=== PATIENT | male | born 1955 | race Caucasian/White ===

== ENCOUNTER 2018-02-06 09:30 | Inpatient (IN) | payer OTHER ==
--- NOTE | 2018-02-21 22:28 | GHP ---
[f rep st] PREOP HISTORY AND PHYSICAL DATE OF ADMISSION: 03/06/2018 PROBLEM: Right hip arthritis. HISTORY OF PRESENT ILLNESS: The patient is a 62-year-old man admitted for a right total hip arthropl asty. He has experienced bilateral hip pain, which has been progressive for the past 5 to 7 years. Both hips are equally painful. He is having daily pain and some night pain. He likes to lift weight s and ride a bicycle. He took Aleve, which helped for 4 or 5 months, but then lost its effectiveness . He switched to meloxicam, which he has used for the past 5 or 6 months. He also is using CBD oil. His hips are stiff after sitting. He has had 2 cortisone injections without much benefit. PAST MEDICAL HISTORY: He is treated for ADD and migraine headaches. No history of heart disease, st ents, DVT, hepatitis, MRSA staph infections, sleep apnea, or bleeding problems. CURRENT MEDICATIONS: Meloxicam 15 mg per day. Methylphenidate 20 mg per day. Prochlorperazine 10 m g per day. DRUG ALLERGIES: None. METAL ALLERGY: None. LATEX ALLERGY: None. SOCIAL HISTORY: The patient is retired. He does not smoke cigarettes or drink alcohol. He has a fe male friend who will assist him following discharge. FAMILY HISTORY: Positive for arthritis. PHYSICAL EXAMINATION: GENERAL: Height 6 feet 2 inches, weight 205 pounds. BMI 26.3. EYES: The co njunctivae and sclerae are clear. Pupils are round and reactive. MOUTH: Good oral hygiene. No loo se teeth. CHEST: Clear. HEART: Regular rhythm. No murmurs. EXTREMITIES: Pertinent findings are limited to his right hip. He has full hip extension to 120 degrees of flexion. External rotation 6 0 degrees. Internal rotation 20 degrees. Abduction 45 degrees. IMAGING: His films show degenerative arthritis in the right hip. PLAN: He will undergo a right total hip arthroplasty. The surgery has been described to him, includ ing the risks, complications, expectations, and recovery time. I have discussed with him specificall y the risk of dislocation, leg length inequality, infection, and sciatic nerve injury. He understand s that he is relatively young and might need revision surgery in the future. He is also thinking abo ut getting a hip arthroplasty for the left hip. All his questions have been answered, and he consent s to surgery. /[id number]/MODL
[2018-03-06] MEDS ORDERED: TRANEXAMIC ACID 1,000 MG in NS 100 ML IV ONE (06:00)
[2018-03-06] MEDS ORDERED: POVIDONE-IODINE 20 ML in SODIUM CL IRRIG SOLUTION 500 ML IRR ONE (06:00)
[2018-03-06] MEDS ORDERED: ROPIVACAINE 0.2% 80 MG, EPINEPHrine 0.2 MG, KETOROLAC TROMETHAMINE 30 MG in SYRINGE 0 ML IU ONE (06:00)
[2018-03-06] MEDS ORDERED: ACETAMINOPHEN 325 MG TAB PO ONE (07:32)
[2018-03-06] MEDS ORDERED: ONDANSETRON 4 MG/2 ML VIAL IVP ONE (07:32)
[2018-03-06] MEDS ORDERED: GABAPENTIN 300 MG CAP PO ONE (07:32)
[2018-03-06] MEDS ORDERED: ceFAZolin 2 GM/DEXTROSE 100 ML IV ONE (07:32)
[2018-03-06] MEDS ORDERED: FAMOTIDINE 20 MG TAB PO ONE (07:32)
[2018-03-06] MEDS ORDERED: DEXAMETHASONE 4 MG/ML VIAL IVP ONE (07:32)
[2018-03-06] MEDS ORDERED: LR 1,000 ML IV ONE (07:33)
[2018-03-06] MEDS ORDERED: LIDOCAINE 1% 2 ML INJ ID PRN (07:33)
[2018-03-06] MEDS ORDERED: ceFAZolin 1 GM/5 ML SYR ONE (08:00)
--- NOTE | 2018-03-06 08:39 | PDANEPAE ---
ANE History of Present Illness Right Hip Arthroplasty ANE Past Medical History - Cardiovascular History Hx Hypertension: No Hx Arrhythmias: No Hx Chest Pain: No Hx Coronary Artery / Peripheral Vascular Disease: No Hx CHF / Valvular Disease: No Hx Palpitations: No - Pulmonary History Hx COPD: No Hx Asthma/Reactive Airway Disease: No Hx Recent Upper Respiratory Infection: No Hx Oxygen in Use at Home: No Hx Sleep Apnea: No Sleep Apnea Screening Result - Last Documented: Negative - Neurologic History Hx Cerebrovascular Accident: No Hx Seizures: No Hx Dementia: No - Endocrine History Hx Diabetes: No Hypothyroid: No Hyperthyroid: No Obesity: no - Renal History Hx Renal Disorders: No - Liver History Hx Hepatic Disorders: No - Neurological & Psychiatric Hx Hx Neurological and Psychiatric Disorders: Yes Neurological / Psychiatric History Comment: ADD. MIGRAINES 1-2 PER YEAR - Cancer History Hx Cancer: Yes Cancer History Comment: SKIN - Congenital Disorder History Hx Congenital Disorders: No - GI History GERD: no Hx Gastrointestinal Disorders: No - Other Health History Other Health History: OSTEOARTHRITIS - Chronic Pain History Chronic Pain: Yes (RT HIP) - Surgical History Prior Surgeries: RT/LT CLAVICLE REPAIR. RT HAND SURG. LT SHLDR TENDON REPAIR/ DECOMPRESSION. TESTICULAR VARICOCELE. SEPTOPLASTY. CHIN IMPLANT (LATEX). TONSILLECTOMY ANE Review of Systems Review of systems is: negative Review of Systems: - Exercise capacity METS (RN): 4 METS - Systems Constitutional: Reports: no symptoms ANE Patient History - Allergies Allergies/Adverse Reactions: NITRATES IN FOODS Allergy (Uncoded 03/06/18 08:18) HEADACHES - Home Medications Home medications: home medication list seen and reviewed Home Medications: Acetaminophen [Tylenol 325mg (*)] 325 mg PO DAILY PRN 02/19/18 [Last Taken Unknown] Herbals/Supplements -Info Only 1 ea PO DAILY 02/19/18 [Last Taken Unknown] Ibuprofen [Motrin (*)] 200 - 600 mg PO BID PRN 02/19/18 [Last Taken Unknown] Meloxicam [Mobic 15 mg] 15 mg PO DAILY PRN 02/19/18 [Last Taken Unknown] Methylphenidate HCl [Ritalin 20mg (*)] 20 mg PO TID 02/19/18 [Last Taken 13:00] Naproxen Sodium [Aleve 220 MG (*)] 220 mg PO BID PRN 02/19/18 [Last Taken Unknown] Prochlorperazine Maleate [Compazine 10mg (*)] 10 mg PO DAILY PRN 02/19/18 [Last Taken 03/05/18 13:00] - NPO status NPO Status: no food or drink >8 hours NPO Since - Liquids (Date): 03/05/18 NPO Since - Liquids (Time): 22:00 NPO Since - Solids (Date): 03/05/18 NPO Since - Solids (Time): 22:00 - Anes Hx Anes Hx: no prior problems - Smoking Hx Smoking Status: Former smoker - Family Anes Hx Family Anes Hx: none Family Hx Anesthesia Complications: NEG ANE Labs/Vital Signs - Vital Signs Blood Pressure: 128/82 Heart Rate: 64 Respiratory Rate: 19 O2 Sat (%): 94 Height: 189.23 cm Weight: 94.347 kg ANE Physical Exam - Airway Neck exam: FROM Mallampati Score: Class 1 Mouth exam: normal dental/mouth exam - Pulmonary Pulmonary: no respiratory distress, no rales or rhonchi - Cardiovascular Cardiovascular: regular rate and rhythym, no murmur, rub, or gallop - ASA Status ASA Status: II ANE Anesthesia Plan Anesthesia Plan: spinal Total IV Anesthesia: Yes
--- NOTE | 2018-03-06 09:07 | PDHPUP ---
History & Physical Update H&P update statement: This history and physical update is based on an assessment of the patient which was completed after admission or registration (within 24 hours), but prior to the surgery/procedure. H&P update: H&P reviewed & patient examined
[2018-03-06] MEDS ORDERED: MIDAZOLAM 2 MG/2 ML VIAL IVP ONE (09:35)
[2018-03-06] MEDS ORDERED: BUPIVACAINE 0.25% 30 ML SDV ONE (09:55)
[2018-03-06] MEDS ORDERED: LIDOCAINE 1% 300 MG/30 ML SDV ONE (09:55)
[2018-03-06] MEDS ORDERED: PROPOFOL/EMULSION 500 MG/50 ML BOTTLE IV ONE (09:57)
[2018-03-06] MEDS ORDERED: fentaNYL 100 MCG/2 ML INJ ONE (09:57)
[2018-03-06] MEDS ORDERED: MIDAZOLAM 2 MG/2 ML VIAL ONE (09:57)
[2018-03-06] MEDS ORDERED: PHENYLEPHRINE HCL 100 MCG/ML SYR ONE (10:43)
[2018-03-06] MEDS ORDERED: PROPOFOL 200 MG/20 ML VIAL ONE (11:10)
[2018-03-06] MEDS ORDERED: oxyCODONE IR 5 MG TAB PO PRN (11:20)
[2018-03-06] MEDS ORDERED: DIAZEPAM 5 MG/ML 1 ML SYR IVP PRN (11:20)
[2018-03-06] MEDS ORDERED: ONDANSETRON 4 MG/2 ML VIAL IVP PRN (11:20)
[2018-03-06] MEDS ORDERED: NALOXONE HCL 0.4 MG/ML INJ IVP PRN (11:20)
[2018-03-06] MEDS ORDERED: fentaNYL 100 MCG/2 ML INJ IVP PRN (11:20)
[2018-03-06] MEDS ORDERED: PROMETHAZINE HCL 25 MG/ML INJ IVP PRN ×2 (11:20→11:33)
[2018-03-06] MEDS ORDERED: DIPHENOXYLATE/ATROPINE LOMOTIL 1 TAB PO PRN (11:33)
[2018-03-06] MEDS ORDERED: POLYETHYLENE GLYCOL 3350 17 GM PKT PO PRN (11:33)
[2018-03-06] MEDS ORDERED: METOCLOPRAMIDE 10 MG/2 ML VIAL IVP PRN (11:33)
[2018-03-06] MEDS ORDERED: BISACODYL 10 MG SUPP PR PRN (11:33)
[2018-03-06] MEDS ORDERED: ONDANSETRON DISINTEGRATING 4 MG TAB PO PRN (11:33)
[2018-03-06] MEDS ORDERED: TEMAZEPAM 15 MG CAP PO PRN (11:33)
[2018-03-06] MEDS ORDERED: LACTULOSE 20 GM/30 ML UDCUP PO PRN (11:33)
[2018-03-06] MEDS ORDERED: traMADol 50 MG TAB PO PRN (11:33)
[2018-03-06] MEDS ORDERED: MAGNESIUM HYDROXIDE 30 ML UDCUP PO PRN (11:33)
[2018-03-06] MEDS ORDERED: PROMETHAZINE HCL 25 MG SUPPR PR PRN (11:33)
[2018-03-06] MEDS ORDERED: CYCLOBENZAPRINE 10 MG TAB PO PRN (11:33)
--- NOTE | 2018-03-06 11:33 | POSTOPPROG ---
Post Op Note Date of Operation: 03/06/18 Surgeon: Kris Brower Estate Attorney: Hugo/Angelica Anesthesiologist: Shar Anesthesia: IV Sedation, Spinal Post-op Diagnosis: R hip arthritis Procedure: R IRVIN Inf/Abcess present in the surg proc area at time of surgery?: No EBL: 100-500
--- NOTE | 2018-03-06 12:19 | GOP ---
[f rep st] OPERATIVE REPORT DATE OF OPERATION: 03/06/2018 SURGEON: Kris Brower MD LOCKSTITCH BACK MAKER: Alex Arias and Coy Dominguez. PREOPERATIVE DIAGNOSIS: Right hip severe degenerative arthritis. POSTOPERATIVE DIAGNOSIS: Right hip severe degenerative arthritis. PROCEDURE PERFORMED: 03/06/2018, a right total hip arthroplasty, ceramic femoral head on highly cros s-linked polyethylene cup liner. FINDINGS: DESCRIPTION OF PROCEDURE: The patient was given 2 g of IV Ancef preoperatively within 60 minutes of surgery. He also received IV tranexamic acid at a dose of 1000 mg. He was placed on the operating r oom table and given spinal anesthesia with Marcaine by Dr. Myles. He was then placed supine and giv en IV sedation. A Dewitt catheter was not used. He wore a SHAY stocking and SCD on the nonoperative l eg. He was rolled to the left lateral decubitus position. The position was secured with the pegboar d table attachment. An axillary roll was used, and all pressure points were carefully padded. I was careful to lock his pelvis in a rigid vertical position. His perineum was isolated with plastic adh esive drapes. His right hip and right lower extremity were prepped with ChloraPrep. They were drape d free using sterile sheets, stockinette, and Ioban plastic drape. The World Health Organization time-out was performed to verify the correct surgical side and site and the correct patient identity. The [place] time-out was also performed. I made a 5-inch straight oblique posterolateral hip skin incision. Subcutaneous tissues were sharply divided, and hemostasis was obtained using electrocautery. The fascia cristina was identified and split distally along the axis of its fibers. I then curved posteriorly and proximally to split the fascia of gluteus les and bluntly split the muscle fibers in line with their orientation. The Charnley self-retaining retractor was inserted. His sciatic nerve was located, partially exposed, and protec shay throughout the procedure. The external rotators and the posterior hip capsule were divided as se parate layers at the base of the femoral neck, tagged, and reflected posteriorly. A smooth 8-inch St einmann pin was inserted vertically into the ilium superior to the acetabulum. An 1/8-inch drill bit was inserted vertically into the greater trochanter and parallel to the first pin. The distance bet ween the 2 was measured for leg length reference. His femoral head was dislocated posteriorly. Dege nerative changes were present on the head. The femoral neck was osteotomized at the appropriate leve l and inclination. I was careful to preserve all the posterior capsule and most of the anterior capsule. The remnant of his damaged labrum was excised. I prepared the femur first. This allowed me to alarm installation technician the amount of natural femoral neck anteversion. This, in turn, allowed me to later determine the correct amount of cup anteversion. He had approxi mately 15 degrees of femoral neck anteversion which is a little more than average for a male. The ca nal was opened laterally with a box chisel. I reamed and broached sequentially up to a size 8. I us ed a Tonya Accolade II stem in a size 8 with standard offset as a trial broach. I was careful to l ateralize adequately. Appropriate retractors were inserted to expose the acetabulum. The acetabulum was reamed sequentiall y up to 58 mm. I selected a 58 mm Tonya Tritanium Trident II cluster hole hemispherical shell. Th is was tapped securely into place in the proper degree of inclination anteversion. I used the transv erse acetabular ligament and other acetabular bony landmarks to help me properly orient the cup. Sup plemental screws were not necessary. I performed a series of trial reductions to determine length and stability. I concluded that the siz e 8 stem with a standard offset and a +5 mm neck length, a 36 mm head, and a 0 degree liner gave me t he proper combination of appropriate length and good anterior and posterior stability. I took intraoperative cross-table AP pelvis x-ray. This demonstrated good sizing and position of the stem. The correct cup position. The leg lengths looked correct with the +5 mm neck. The 0 degree Tonya X3 highly cross-linked polyethylene liner was inserted and tapped securely into place. I selected the Tonya Accolade II stem in a size 8 with standard offset. This was inserted press-fit and was very tight. I did one final trial reduction and confirmed that the +5 mm neck didier th with a 36 mm head was the proper combination. The [place] Biolox Delta ceramic head with a +5 mm neck length and a 36 mm outside diameter was tapped securely onto the clean trunnion. The acetabulum was irrigated and cleaned, and the hip was reduced one final time. He had excellent anterior and po sterior stability and appropriate length. 40 mL of the joint anesthetic cocktail were injected into the capsule, the deep musculature, and the subcutaneous tissues along the skin edges. The joint was thoroughly irrigated one final time with a dilute Betadine solution. His sciatic nerve was reinspected and looked unharmed. The external rotators and the posterior hip capsule were repaired in separate layers with #2 FiberWir e sutures through drill holes in the greater trochanter. The fascia cristina was closed with 2 figure-of -eight #2 FiberWire sutures, followed by a running #2 barbed Ethicon Stratafix PDO suture. Subcutane ous tissues were closed with a running 0 barbed Ethicon Stratafix Monoderm suture. The skin was clos ed with a running 3-0 barbed Ethicon Stratafix Monoderm subcuticular suture. The skin edges were guillaume pproximated and sealed with Dermabond glue. The wound was covered with a large waterproof sterile Me pilex surgical dressing. The Mepilex sacral dressing was also applied. A long-leg SHAY stocking and SCD were applied to his right lower extremity. He wore a stocking and SC D on the opposite leg during the procedure. An abduction pillow was placed between his knees. He wa s awakened from anesthesia and rolled to the supine position on his [facility]. He was taken to PACU in satisfactory condition. There were no recognized intraoperative complications. The estimated blood loss about 400 mL. The sponge and needle count were correct on 2 occasions. I used a Tonya Tritanium hemispherical cluster hole Trident II acetabular shell with an outside dandy meter of 58 mm. The liner was a [place] X3 zero-degree liner with an inside diameter of 36 mm. The femoral component was a press-fit Tonya Accolade II standard offset stem in a size 8. The femoral head was a Tonya Biolox Delta ceramic head with a +5 mm neck length and a 36 mm outside diameter. Alex Arias and Dr. Coy Dominguez acted as surgical assistants. Their assistance was a medical [facility] sity for safe completion of the procedure. /[id number]/MODL
--- NOTE | 2018-03-06 12:42 | PDMN ---
Medical Necessity Medical necessity: [facility] S-560, hip athroplasty, aakash inpt only, R IRVIN
[2018-03-06] MEDS: LR 1,000 ML IV SCH ×2 (13:21→22:13)
[2018-03-06] MEDS: ACETAMINOPHEN 325 MG TAB PO SCH ×3 (13:21→23:15)
[2018-03-06] MEDS: KETOROLAC 15 MG/1 ML SDV IVP SCH ×3 (13:23→23:16)
--- NOTE | 2018-03-06 13:24 | POSTANESTH ---
Post Anesthetic Evaluation Cardiovascular Status: Normal, Stable Respiratory Status: Normal, Stable Level of Consciousness/Mental Status: Can Participate in Eval Pain Control: Adequate, Prn Tx Ordered Nausea/Vomiting Control: Adequate, Prn Tx Ordered Complications Possibly Related to Anesthesia: None Noted
[2018-03-06] MEDS: oxyCODONE IR 5 MG TAB PO PRN ×3 (15:11→23:17)
[2018-03-06] MEDS: TRANEXAMIC ACID 650 MG TAB PO SCH ×2 (16:09→23:18)
[2018-03-06] MEDS: ceFAZolin 2 GM/DEXTROSE 100 ML IV SCH (18:14)
[2018-03-06] MEDS: ASPIRIN 325 MG TAB PO SCH (20:12)
[2018-03-06] MEDS: SENNOSIDES/DOCUSATE SODIUM TAB PO SCH (20:12)
[2018-03-06] MEDS ORDERED: FAMOTIDINE 20 MG TAB PO SCH (21:00)
[2018-03-07] MEDS: ceFAZolin 2 GM/DEXTROSE 100 ML IV SCH (02:12)
[2018-03-07] MEDS: KETOROLAC 15 MG/1 ML SDV IVP SCH (05:29)
[2018-03-07] MEDS: ACETAMINOPHEN 325 MG TAB PO SCH (06:40)
[2018-03-07 07:20] VITALS: BP 98/55
[2018-03-07] MEDS ORDERED: FERROUS SULFATE 140 MG TAB.ER PO SCH (09:00)
[2018-03-07] MEDS: ASPIRIN 325 MG TAB PO SCH (09:48)
[2018-03-07] MEDS: TRANEXAMIC ACID 650 MG TAB PO SCH (09:49)
[2018-03-07] MEDS: oxyCODONE IR 5 MG TAB PO PRN (09:49)
[2018-03-07] MEDS: SENNOSIDES/DOCUSATE SODIUM TAB PO SCH (09:49)
--- NOTE | 2018-03-07 09:50 | SOAPPROG ---
SOAP Progress Note Assessment/Plan: Assessment: Afebrile. Awake and alert. Has been walking in [place] with PT. Has done stairs. Sciatic nerve intact. H/H is good. No nausea. Voiding spont. Post op films look good. Plan:DC today. 03/07/18 09:49 Objective: Vital Signs Temp Pulse Resp BP Pulse Ox 36.6 C 51 L 16 98/55 L 98 03/07/18 07:20 03/07/18 07:20 03/07/18 07:20 03/07/18 07:20 03/07/18 07:20 Laboratory Results 03/07/18 04:22 03/06/18 03/07/18 03/08/18 05:59 05:59 05:59 Intake Total 4168 Output Total 1950 Balance 2218 ICD10 Worksheet Patient Problems: Problems Problem Status Onset Osteoarthritis of right hip Acute
--- NOTE | 2018-03-07 10:05 | GDS ---
[f rep st] DISCHARGE SUMMARY ADMISSION DIAGNOSIS: Right hip degenerative arthritis. DISCHARGE DIAGNOSIS: Right hip degenerative arthritis. OPERATION PERFORMED: , right total hip arthroplasty, ceramic femoral head on highly cross- linked polyethylene cup liner. POSTOPERATIVE COMPLICATIONS: None. CONDITION ON DISCHARGE: Improved. DESCRIPTION OF HOSPITAL COURSE: The patient was admitted to the hospital the morning of surgery. Hi s admission CBC was normal. The same day, under a combination of Marcaine, spinal, and IV sedation, he underwent a right total hip arthroplasty. Postoperatively, he was treated with multimodal DVT pro phylaxis, including aspirin. On the first postoperative day his hemoglobin and hematocrit were 11.4 and 34.0. He was seen by Physical Therapy and made good progress with ambulation and stairs. By the time of discharge, he was afebrile, his wound was clean and dry, and he was independent walking with a walker. DISPOSITION: The patient discharged to his home. He will go to outpatient physical therapy at [facility] physical therapy in [place] next week. He may progress to full weightbearing on the right as tolerated. Use an abduction pillow in bed for 3 weeks. SHAY stockings for 1 week. Continue aspirin 325 mg p.o. daily for 21 days. He has prescriptions for oxycodone, tramadol and Celebrex for pain c ontrol. I will see him back in the office in 3 weeks. If there are any problems, he is to call me a t the office. /[id number]/MODL
--- NOTE | 2018-03-07 11:04 | ASMTLACE ---
NIKI Length of stay for Answers: 1 day current admission Acuity / Level of Answers: Yes Care: Did the patient have an inpatient admission? # of Emergency department Answers: 0 visits in the last 6 months Score: 4 Date Signed: 03/07/2018 11:04 AM Electronically Signed By:RENATO Avelar
--- NOTE | 2018-03-07 11:55 | ASDISCHSUM ---
Discharge Information Plan Status:Home with No Needs Medically Cleared to Leave: Discharge Date:03/07/2018 11:42 AM CM D/C Disposition:Home, Routine, Self-Care ADT D/C Disposition:Home, Routine, Self-Care Projected Discharge Date:03/07/2018 11:42 AM Transportation at D/C: Discharge Delay Reason: Follow-Up Date:03/07/2018 11:42 AM Discharge Slot: Final Diagnosis: Placement Information Patient Contact Information Contact Name:STACIE Relationship:Other Address: Home Phone: City: [facility] Phone: [facility]/Fullscreen Code: Email: Financial Information Financial Class:HMO and PPO Plans Primary Plan Desc:HMO CINDY [employer] PLAN Primary Plan Number:[id number] Secondary Plan Desc: Secondary Plan Number: Assessment Information LACE LACE Length of stay for Answers: 1 day current admission Acuity / Level of Answers: Yes Care: Did the patient have an inpatient admission? # of Emergency department Answers: 0 visits in the last 6 months Score: 4 Date Signed: 03/07/2018 11:04 AM Electronically Signed By:RENATO Avelar [facility] CM Progress Note CM Note CM Note Notes: Pt medically stable for d/c with friend support. Pt will have outpatient PT. No CM d/c needs identified Date Signed: 03/07/2018 11:55 AM Electronically Signed By:RENATO Avelar Intervention Information
== END 2018-03-07 11:42 | disposition home or self-care (01) | DRG 470 ==
LOC: F3N 03-06 07:17
PROVIDERS: ADMIT Orthopaedic Surgery; ATTEND Orthopaedic Surgery
PROC: 0SR904Z Replacement of Right Hip Joint with Ceramic on Polyethylene Synthetic Substitute, Open Approach (ICD-10-PCS; principal; 2018-03-06 09:15)
DX: M16.11 Unilateral primary osteoarthritis, right hip (principal); F98.8 Other specified behavioral and emotional disorders with onset usually occurring in childhood and adolescence
CPT/HCPCS: 97110-GP; 97116-GP; 97161-GP; 97165-GO; C1713; J0171; J0690; J1100; J1885; J2250; J2370; J2405; J2704; J2795; J3010

== ENCOUNTER 2018-04-17 07:26 | Inpatient (IN) | payer OTHER ==
[~2018-04-17 07:26] MED LIST: POVIDONE-IODINE 20 ML in SODIUM CL IRRIG SOLUTION 500 ML IRR ONE; ROPIVACAINE 0.2% 80 MG, EPINEPHrine 0.2 MG, KETOROLAC TROMETHAMINE 30 MG in SYRINGE 0 ML IU ONE; TRANEXAMIC ACID 1,000 MG in NS 100 ML IV ONE
[2018-04-17] MEDS ORDERED: ceFAZolin 2 GM/DEXTROSE 100 ML IV ONE (07:34)
[2018-04-17] MEDS ORDERED: FAMOTIDINE 20 MG TAB PO ONE (07:34)
[2018-04-17] MEDS ORDERED: ONDANSETRON 4 MG/2 ML VIAL IVP ONE (07:34)
[2018-04-17] MEDS ORDERED: GABAPENTIN 300 MG CAP PO ONE (07:34)
[2018-04-17] MEDS ORDERED: DEXAMETHASONE 4 MG/ML VIAL IVP ONE (07:34)
[2018-04-17] MEDS ORDERED: ACETAMINOPHEN 325 MG TAB PO ONE (07:34)
[2018-04-17] MEDS ORDERED: LR 1,000 ML IV ONE (07:35)
[2018-04-17] MEDS ORDERED: ceFAZolin 1 GM/5 ML SYR ONE (09:17)
[2018-04-17] MEDS ORDERED: MIDAZOLAM 2 MG/2 ML VIAL ONE (09:29)
[2018-04-17] MEDS ORDERED: PROPOFOL/EMULSION 500 MG/50 ML BOTTLE IV ONE (09:30)
[2018-04-17] MEDS ORDERED: LIDOCAINE 2% 5 ML SDV ONE (09:53)
[2018-04-17] MEDS ORDERED: DIAZEPAM 5 MG/ML 1 ML SYR IVP PRN (10:06)
[2018-04-17] MEDS ORDERED: fentaNYL 100 MCG/2 ML INJ IVP PRN (10:06)
[2018-04-17] MEDS ORDERED: DEXAMETHASONE 4 MG/ML VIAL IVP PRN (10:06)
[2018-04-17] MEDS ORDERED: NALOXONE HCL 0.4 MG/ML INJ IVP PRN (10:06)
[2018-04-17] MEDS ORDERED: ALBUTEROL 3 ML DEYVIAL IH PRN (10:06)
[2018-04-17] MEDS ORDERED: LR 500 ML IV PRN (10:06)
[2018-04-17] MEDS ORDERED: METOCLOPRAMIDE 10 MG/2 ML VIAL IVP PRN ×2 (10:06→11:34)
[2018-04-17] MEDS ORDERED: MEPERIDINE 25 MG/0.5 ML AMP IVP PRN (10:06)
[2018-04-17] MEDS ORDERED: ONDANSETRON 4 MG/2 ML VIAL IVP PRN ×2 (10:06→11:34)
--- NOTE | 2018-04-17 10:06 | PDANEPAE ---
ANE Past Medical History - Cardiovascular History Hx Hypertension: No Hx Arrhythmias: No Hx Chest Pain: No Hx Coronary Artery / Peripheral Vascular Disease: No Hx CHF / Valvular Disease: No Hx Palpitations: No - Pulmonary History Hx COPD: No Hx Asthma/Reactive Airway Disease: No Hx Recent Upper Respiratory Infection: No Hx Oxygen in Use at Home: No Hx Sleep Apnea: No Sleep Apnea Screening Result - Last Documented: Negative - Neurologic History Hx Cerebrovascular Accident: No Hx Seizures: No Hx Dementia: No - Endocrine History Hx Diabetes: No - Renal History Hx Renal Disorders: No - Liver History Hx Hepatic Disorders: No - Neurological & Psychiatric Hx Hx Neurological and Psychiatric Disorders: Yes Neurological / Psychiatric History Comment: ADD. MIGRAINES 1-2 PER YEAR - Cancer History Hx Cancer: Yes Cancer History Comment: SKIN - Congenital Disorder History Hx Congenital Disorders: No - GI History Hx Gastrointestinal Disorders: No - Other Health History Other Health History: OSTEOARTHRITIS - Chronic Pain History Chronic Pain: No - Surgical History Prior Surgeries: RT/LT CLAVICLE REPAIR. RT HAND SURG. LT SHLDR TENDON REPAIR/ DECOMPRESSION. TESTICULAR VARICOCELE. SEPTOPLASTY. CHIN IMPLANT (LATEX). TONSILLECTOMY. right IRVIN ANE Review of Systems Review of Systems: - Exercise capacity METS (RN): 4 METS ANE Patient History - Allergies Allergies/Adverse Reactions: NITRATES IN FOODS Allergy (Uncoded 04/02/18 10:57) HEADACHES - Home Medications Home Medications: Herbals/Supplements -Info Only 1 ea PO DAILY 02/19/18 [Last Taken 04/09/18] Methylphenidate HCl [Ritalin 20mg (*)] 20 mg PO TID@06,11,15 03/28/18 [Last Taken 04/16/18] - NPO status NPO Since - Liquids (Date): 04/16/18 NPO Since - Liquids (Time): 20:30 NPO Since - Solids (Date): 04/16/18 NPO Since - Solids (Time): 20:30 - Smoking Hx Smoking Status: Former smoker - Family Anes Hx Family Hx Anesthesia Complications: none ANE Labs/Vital Signs - Vital Signs Blood Pressure: 127/79 Heart Rate: 60 Respiratory Rate: 18 O2 Sat (%): 95 Height: 190.5 cm Weight: 92.986 kg ANE Physical Exam - Airway Neck exam: FROM Mallampati Score: Class 1 Mouth exam: normal dental/mouth exam - Pulmonary Pulmonary: no respiratory distress, no rales or rhonchi, clear to auscultation - Cardiovascular Cardiovascular: regular rate and rhythym, no murmur, rub, or gallop - ASA Status ASA Status: II ANE Anesthesia Plan Anesthesia Plan: spinal
--- NOTE | 2018-04-17 11:17 | POSTOPPROG ---
Post Op Note Date of Operation: 04/17/18 Surgeon: Kris Brower Rough Rice Tender: Hugo/Vitaly Anesthesiologist: Krishna Anesthesia: IV Sedation, Spinal Post-op Diagnosis: left hip arthritis Procedure: L IRVIN Inf/Abcess present in the surg proc area at time of surgery?: No EBL: 100-500
[2018-04-17] MEDS ORDERED: traMADol 50 MG TAB PO PRN (11:34)
[2018-04-17] MEDS ORDERED: MAGNESIUM HYDROXIDE 30 ML UDCUP PO PRN (11:34)
[2018-04-17] MEDS ORDERED: BISACODYL 10 MG SUPP PR PRN (11:34)
[2018-04-17] MEDS ORDERED: diphenhydrAMINE 25 MG CAP PO PRN (11:34)
[2018-04-17] MEDS ORDERED: PROMETHAZINE HCL 25 MG SUPPR PR PRN (11:34)
[2018-04-17] MEDS ORDERED: DIPHENOXYLATE/ATROPINE LOMOTIL 1 TAB PO PRN (11:34)
[2018-04-17] MEDS ORDERED: POLYETHYLENE GLYCOL 3350 17 GM PKT PO PRN (11:34)
[2018-04-17] MEDS ORDERED: NS 500 ML IV PRN (11:34)
[2018-04-17] MEDS ORDERED: TEMAZEPAM 15 MG CAP PO PRN (11:34)
[2018-04-17] MEDS ORDERED: CYCLOBENZAPRINE 10 MG TAB PO PRN (11:34)
[2018-04-17] MEDS ORDERED: PROMETHAZINE HCL 25 MG/ML INJ IVP PRN (11:34)
[2018-04-17] MEDS ORDERED: LACTULOSE 20 GM/30 ML UDCUP PO PRN (11:34)
--- NOTE | 2018-04-17 11:55 | GOP ---
[f rep st] OPERATIVE REPORT DATE OF OPERATION: 04/17/2018 SURGEON: Kris Brower MD CHEMICAL RESEARCH TECHNICIAN: 1. Alex Arias CFA. 2. Joey Haider, PAC. ANESTHESIA: A combination of Marcaine, spinal, and IV sedation. ANESTHESIOLOGIST: Indira Keller MD PREOPERATIVE DIAGNOSIS: Left hip severe degenerative arthritis. POSTOPERATIVE DIAGNOSIS: Left hip severe degenerative arthritis. PROCEDURE PERFORMED: Left total hip arthroplasty, ceramic femoral head on highly cross-linked polyet hylene cup liner. FINDINGS: DESCRIPTION OF PROCEDURE: The patient was given 2 g of IV Ancef preoperatively within 60 minutes of surgery. He also received IV tranexamic acid at a dose of 1000 mg. He was placed on the operating r oom table and given spinal anesthesia with Marcaine by Dr. Keller. He was then placed supine and giv en IV sedation. A Dewitt catheter was not used. He wore a SHAY stocking and SCD on the nonoperative l eg. He was rolled to the right lateral decubitus position. The position was secured with the pegboa rd table attachment. An axillary roll was used, and all pressure points were carefully padded. I wa s careful to lock his pelvis in a rigid vertical position. His perineum was isolated with plastic ad hesive drapes. The left hip and left lower extremity were prepped with ChloraPrep. They were draped free using sterile sheets, stockinette and Ioban plastic adhesive drape. The [employer] time-out was performed to verify the correct patient identity and the c orrect surgical side and site. I made a 5-6 inch straight oblique posterolateral hip skin incision. The subcutaneous tissues were s harply divided, and hemostasis was obtained using electrocautery. The fascia cristina was identified and split along the axis of its fibers proximally. I then curved posteriorly and proximally, and split the fascia of the gluteus les and bluntly split the muscle fibers in line with their orientation. The Charnley self-retaining retractor was inserted. His sciatic nerve was located, partially expos ed, and protected throughout the procedure. The external rotators and the posterior hip capsule were divided as separate layers at the base of the femoral neck, tagged, and reflected posteriorly. A [facility] 8-inch Steinmann pin was inserted vertically into the ilium, superior to the acetabulum. An 8-i [facility] drill bit was inserted vertically into the greater trochanter and parallel to the first pin. The distance between the two was measured for leg length reference. His femoral head was dislocated pos teriorly. The femoral neck was osteotomized at the appropriate level and inclination. I was careful to preserve all the posterior capsule and most of the anterior capsule. The remnant of his damaged labrum was excised. The femur was prepared first. 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 This, in turn, allowed me to later determine the correct amount of cup anteversion. He had appro ximately 12-15 degrees of femoral neck anteversion. The canal was opened laterally with a box chisel . I reamed and hand broached sequentially up to size 9. The Accolade II size 9 standard offset broa ch was used as a trial stem. I was careful to lateralize adequately. Appropriate retractors were inserted to expose the acetabulum. The acetabulum was reamed sequentiall y up to 57 mm. I selected a 58 mm Gibson Trident II Tritanium cluster-hole hemispherical shell. Th is was tapped securely into place in the proper degree of inclination and anteversion. I used the tr ansverse acetabular ligament and other acetabular bony landmarks to help properly orient the cup. Man pplemental screw fixation was not necessary. I performed a series of trial reductions to determine length and stability. I concluded that the siz e 9 standard offset stem with a 0 mm neck length and a 36 mm head with a 0 degree trial liner gave me the proper combination of appropriate length and good anterior and posterior stability. He was shor t by measurement preoperatively and clinically, he felt like he was short preoperatively, so I was in tentionally lengthening him a small amount. I took a cross-table AP x-ray and confirmed proper sizing of the components, proper positioning of th e components and the correct leg length. The 0 degree Gibson X3 highly cross-linked polyethylene liner was inserted and tapped securely into place. The Gibson Accolade II stem in size 9 with standard offset was inserted press-fit and was a good tight fit. I did one final trial reduction and confirmed that the 0 neck length with a 36 mm he ad was the proper combination. The Tonya Biolox Delta ceramic head with an outside diameter of 36 mm and a neck length of 0 mm was tapped securely onto the clean trunnion. The acetabulum was irrigat ed and cleaned, and the hip was reduced one final time. He had excellent anterior and posterior stab ility and appropriate lengthening. 40 mL of the joint anesthetic cocktail was injected into the capsule, the deep musculature, and the s ubcutaneous tissues around the skin edges. The joint was thoroughly irrigated one final time with a dilute Betadine solution. His sciatic nerve was reinspected and looked unharmed. The external rotat ors and the posterior hip capsule were repaired in separate layers with #2 FiberWire sutures through drill holes in the greater trochanter. The fascia cristina was closed first with a couple of figure-of-e ight #2 FiberWire sutures followed by a running #2 barbed Ethicon Stratafix PDO suture. The subcutan eous tissues were closed with a running 0 barbed Ethicon Stratafix Monoderm suture. The skin was ran sed with a running 3-0 barbed Ethicon Stratafix Monoderm subcuticular suture. The skin edges were re approximated and sealed with Dermabond glue. The wound was covered with a large Mepilex waterproof d ressing. The sacral Mepilex dressing was also applied. A long-leg SHAY stocking and SCD were applied to his left lower extremity. An abduction pillow was pl aced between his knees. He was awakened from anesthesia and rolled to the supine position on his [facility] gurney. He was taken to PACU in satisfactory condition. There were no recognized intraoperati ve complications. The estimated blood loss was about 400 mL. The sponge and needle count were correct on 2 occasions. I used a Tonya Tritanium Trident II hemispherical press-fit cluster-hole acetabular shell with an o utside diameter of 58 mm. The liner was a Tonya X3 0-degree highly cross-linked liner with an insi de diameter of 36 mm. The femoral component was a standard offset Accolade II stem in a size 9 and p ress-fit. The femoral head was a Gibson Biolox Delta ceramic head with a 0 neck length and a 36 mm outside diameter. Alex Arias and Néstor Haider acted as surgical assistants. Their assistance was a medical necess ity for safe completion of the procedure. /[id number]/MODL
[2018-04-17] MEDS ORDERED: LR 1,000 ML IV SCH (12:00)
--- NOTE | 2018-04-17 12:40 | POSTANESTH ---
Post Anesthetic Evaluation Cardiovascular Status: Normal, Stable, Similar to Pre-Op Cond Respiratory Status: Normal, Stable, Similar to Pre-op Cond. Level of Consciousness/Mental Status: Can Participate in Eval Pain Control: Adequate, Prn Tx Ordered Nausea/Vomiting Control: Adequate, Prn Tx Ordered Complications Possibly Related to Anesthesia: None Noted
--- NOTE | 2018-04-17 14:15 | PDMN ---
Medical Necessity Medical necessity: [facility] S560 Hip Arthroplasty, 62 y/o status post left IRVIN, Medicare Inpatient Only
[2018-04-17] MEDS: ACETAMINOPHEN 325 MG TAB PO SCH ×2 (15:13→18:00)
[2018-04-17] MEDS: KETOROLAC 15 MG/1 ML SDV IVP SCH ×3 (15:13→23:59)
[2018-04-17] MEDS: ceFAZolin 2 GM/DEXTROSE 100 ML IV SCH (16:00)
[2018-04-17] MEDS: oxyCODONE IR 5 MG TAB PO PRN ×2 (17:59→21:31)
[2018-04-17] MEDS: ONDANSETRON DISINTEGRATING 4 MG TAB PO PRN (18:04)
[2018-04-17] MEDS: ASPIRIN 325 MG TAB PO SCH (20:40)
[2018-04-17] MEDS: SENNOSIDES/DOCUSATE SODIUM TAB PO SCH (20:40)
[2018-04-17] MEDS: FAMOTIDINE 20 MG TAB PO SCH (20:40)
[2018-04-18] MEDS: ceFAZolin 2 GM/DEXTROSE 100 ML IV SCH (01:21)
[2018-04-18] MEDS: ACETAMINOPHEN 325 MG TAB PO SCH ×3 (05:38→11:36)
[2018-04-18] MEDS: KETOROLAC 15 MG/1 ML SDV IVP SCH (05:38)
--- NOTE | 2018-04-18 08:15 | SOAPPROG ---
SOAP Progress Note Assessment/Plan: Assessment: Afebrile. Mild pain. Up and walking. Dsg is dry. Min swelling. Sciatic nerve intact. Films look good. Plan: Continue PT. DC today. 04/18/18 08:12 Objective: Vital Signs Temp Pulse Resp BP Pulse Ox 36.7 C 54 L 18 103/65 97 04/18/18 07:48 04/18/18 07:48 04/18/18 07:48 04/18/18 07:48 04/18/18 07:48 Laboratory Results 04/18/18 05:02 04/17/18 04/18/18 04/19/18 05:59 05:59 05:59 Intake Total 1680 Output Total 1025 Balance 655 ICD10 Worksheet Patient Problems: Problems Problem Status Onset Osteoarthritis of left hip Acute Osteoarthritis of right hip Acute
--- NOTE | 2018-04-18 08:26 | GDS ---
[f rep st] DISCHARGE SUMMARY ADMISSION DIAGNOSIS: Left hip severe arthritis. DISCHARGE DIAGNOSIS: Left hip severe arthritis. OPERATION PERFORMED: April 17, 2018, a left total hip arthroplasty. POSTOPERATIVE COMPLICATIONS: None. CONDITION ON DISCHARGE: Improved. DESCRIPTION OF HOSPITAL COURSE: The patient was admitted to the hospital on the morning of surgery. His admission CBC was normal. The same day, under a combination of Marcaine, spinal, and IV sedatio n, he underwent a left total hip arthroplasty. Postoperatively, he was treated with multimodal DVT p rophylaxis, including aspirin. He was seen by Physical Therapy and made excellent progress with ambu lation and stairs. On the first postoperative day, his hemoglobin and hematocrit were 11.4 and 34.5. By the time of discharge, he was afebrile, his wound was clean and dry, and he was independent walk ing with a walker. DISPOSITION: Patient discharged to his home. He may progress to full weightbearing on the left as t olerated. Use SHAY stockings for 1 week. Use an abduction pillow in bed for 3 weeks. Continue aspir in 325 mg p.o. daily for 21 days. He will go to outpatient physical therapy. I will see him back in the office on May 07, 2018. If there are any problems, he is to call me at the office. /[id number]/MODL
[2018-04-18] MEDS: oxyCODONE IR 5 MG TAB PO PRN ×2 (08:28)
[2018-04-18] MEDS: SENNOSIDES/DOCUSATE SODIUM TAB PO SCH (08:29)
[2018-04-18] MEDS: FAMOTIDINE 20 MG TAB PO SCH (08:29)
[2018-04-18] MEDS: ASPIRIN 325 MG TAB PO SCH (08:29)
[2018-04-18] MEDS: ONDANSETRON DISINTEGRATING 4 MG TAB PO PRN (08:53)
[2018-04-18] MEDS ORDERED: FERROUS SULFATE 140 MG TAB.ER PO SCH (09:00)
--- NOTE | 2018-04-18 11:16 | ASMTLACE ---
NIKI Length of stay for Answers: 2 days current admission Acuity / Level of Answers: Yes Care: Did the patient have an inpatient admission? # of Emergency department Answers: 0 visits in the last 6 months Score: 5 Date Signed: 04/18/2018 11:15 AM Electronically Signed By:RENATO Avelar
--- NOTE | 2018-04-18 11:16 | ASMTCMCOM ---
CM Note CM Note Notes: PT rec home/outpatient. Pt medically stable for d/c, no CM d/c needs identified. Date Signed: 04/18/2018 11:16 AM Electronically Signed By:RENATO Avelar
[2018-04-18 12:49] VITALS: BP 131/76
== END 2018-04-18 13:16 | disposition home or self-care (01) | DRG 470 ==
LOC: F3N 07:26 → EDSTATUS 09:15 → OBSVTOIN 11:36 → F3N 14:48
PROVIDERS: ADMIT Orthopaedic Surgery; ATTEND Orthopaedic Surgery
PROC: 0SRB04Z Replacement of Left Hip Joint with Ceramic on Polyethylene Synthetic Substitute, Open Approach (ICD-10-PCS; principal; 2018-04-17 09:15)
DX: M16.12 Unilateral primary osteoarthritis, left hip (principal); Z96.641 Presence of right artificial hip joint; Z87.891 Personal history of nicotine dependence
CPT/HCPCS: 97116-GP; 97161-GP; 97165-GO; 97530-GP; J0171; J0690; J1100; J1885; J2250; J2405; J2704; J2795